=== PATIENT | female | born 1985 | race Caucasian/White ===

== ENCOUNTER 2025-01-03 17:31 | Emergency (ER) | payer OTHER ==
--- OUTSIDE RECORDS SUMMARY | 2025-01-03 17:34 | XMS REPORT | Clinical Summary ---
Author Name Unknown Organization [facility] Address [address] [place] [address] Care Team Providers Care Database Developer Name Role Phone Redd Hartman MD Primary Care Provider [phone] Kinjal Wyatt MD Unavailable Lupillo Isaacs MD Unavailable [phone] Anyi Nunn MD Unavailable Allergies Active Allergy Reactions Criticality Noted Date Comments Sulfamethoxazole-Trimethop rim Hives,Itching,Photosensitiv ity,Rash High 08/15/2016 Tramadol Hives,Itching 10/18/2022 Medications Synthroid 100 mcg tablet TAKE ONE (1) TABLET(S) BY MOUTH ONCE A DAY BEFORE BREAKFAST. 12/13/2021 Active Active Problems Problem Noted Date Diagnosed Date Dysplastic nevus of external ear <Left> 01/16/20 22 Dysplastic nevus of external ear <Right> 022 Assessment & Plan (01/15/2022 9:37 AM CDT): Ms. José is a 36 y/o female with a history of a dysplastic nevus of her left ear treated with excision back in June 2021. More recently she had a shave biopsy of the right ear that was also positive for an atypical nevus with features indicating further excision needed to be done. Her outside slides are being acquired for review/interpretation here. We will follow-up on those results. If they confirm what her current pathology reports outline, she would need a conservative excision on the right ear like she had done on the left. Because she has a raised skin lesion in a site that was biopsied, we suspect a very superficial biopsy might have been done and would like to do a punch biopsy of the lesion in clinic today. We will follow-up on those results and plan next steps accordingly. Dr. Hartman performed a 4mm punch biopsy. Her brother, who is an ER physician, will remove the sutures. She has no other skin lesions that are concerning at this time on skin exam. We do recommend she continue with her dermatologic surveillance every 6 months, as she is currently doing. Encounters Date Type Department Care Team Description 08/04/2024 Documentation Cancer [address], [address] [place] [address] Rangel Domingo 07/22/2024 3:00 PM SINKER WINDER Office Visit Undiagnosed Breast Clinic [address] [place] [address], [address] [place] [address] Anyi Nunn MD Family history of malignant neoplasm of breast 07/22/2024 12:38 PM SINKER WINDER - 07/22/2024 11:59 PM SINKER WINDER Hospital Encounter Breast Imaging [address] [place] [address], [address] [place] [address] Anyi Nunn MD Screening Discharge Disposition: Home 07/22/2024 12:15 PM SINKER WINDER - 07/22/2024 12:37 PM SINKER WINDER Hospital Encounter [facility] [address] [place] [id number] Carmen Oneal MD Exam of participant in clinical research Discharge Disposition: Home 07/22/2024 Travel 07/22/2024 Orders Only Cancer [address], [address] [place] [address] Rangel Domingo Exam of participant in clinical research (Primary Dx) 07/22/2024 Documentation Cancer [address], [address] [place] [address] Susana Domingoedgardo Bird 07/17/2024 Documentation Breast Imaging [address] [facility], 5th [place] [address] Tonie Ibanez, 05/18/2024 2:45 PM CDT [facility]erm[facility]ology [address] [facility] [address] [facility], 9th [place] [address] Corrina Morgan MD Screening for malignant neoplasm of skin 05/18/2024 Travel after 01/04/2024 Immunizations Immunization Administration Dates Next Due HPV 9-VALENT 06/20/2022,01/09/2022,11/05/2021 Influenza, injectable, quadr ivalent, preservative free 06/02/2023,05/18/2017 Moderna SARS-CoV-2 Vaccination 11/08/2020,2020 Tdap 11/25/2017 Surgical History Surgery Date Site/Laterality Comments EXCISION OF CERVIX USING LOOP ELECTRODE 09/18/2021 - 10/15/2021 ME EXCISION MALIGNANT LESION F/E/E/N/L 0.6-1.0 CM 05/29/2022 Right Procedure: EXCISION OF MALIGNANT LESION OF EAR - wide excision right ear; Surgeon: Redd Hartman MD; Location: [facility]; Service: SURG ONC - MELANOMA PARTIAL HYSTERECTOMY 11/16/2022 - 12/15/2022 COLONOSCOPY 09/18/2023 - 10/16/2023 Melia;l Follow up 10 years Medical History Medical History Date Comments Unspecified lump in unspecified breast 11/2021 Biopsy completed November 2021 Pneumonia 1997 Anemia 1998 Disorder of thyroid gland 2003 Eczema 2001 Malignant melanoma May 2021 Family History Medical History Relation Name Comments Melanoma Maternal Aunt Nahed Henry Her daughte r (my cousin) has had it twice. Melanoma Maternal Grandfather Irvin Van Sr Skin cancer Maternal Grandfather Irvin Van Sr Basa l cell Skin cancer Maternal Uncle Irvin Van Jr Basal cell Breast cancer Mother Robyn Moss Liver cancer Paternal Grandmother Claudia Gates Ordonez Relation Name Status Comments Maternal Aunt Nahed Henry Maternal Grandfather Irvin Van Sr Maternal Uncle Irvin Van Jr Mother Robyn Moss Paternal Grandmother Claudia Ordonez Social History Tobacco Use Types Packs/Day Years Used Date Smoking Tobacco: Never Smokeless Tobacco: Never Alcohol Use Standard Drinks/Week Comments Yes 0 (1 standard drink = 0.6 oz pur e alcohol) About 1 astrid / month Comments No Sex and Gender Information Value Date Recorded Sex Assigned at Female 12/08/2021 9:53 PM CDT Legal Sex Female 12:50 PM CDT Gender Identity Female 12/08/2021 9:53 PM CDT Sexual Orientation Straight 12/08/2021 9: 53 PM CDT Obstetrics History Para Term AB IAB SAB Ectopic Multiple Livin g Live Births 2 2 2 Date Outcome GA Total Labor Labor/2nd/3rd Weight Sex Type Anes PTL Tete A1 A5 Name Clin Term Term Comments Menarche: 8 Parity: 31 OBC: 16 years Hormonal Therapy: No Last Pap: (OS) 05/2022 Negative Abnormal Pap: (OS) Several Since mid HPV Positive and Dysplasia Treatment: LEEP and Hysterectomy Last Aly: 08/19/2023 Last Colon: (OS) 09/2023 Normal Follow up: 10 years Breast Bx: 3 MDA And 2 At [facility]; benign Last Filed Vital Signs Vital Sign Reading Time Taken Comments Blood Pressure 113/77 07/22/2024 2:30 PM SINKER WINDER Pulse 90 07/22/2024 2:30 PM SINKER WINDER Temperature - - Respiratory Rate 18 07/22/2024 2:30 PM SINKER WINDER Oxygen Saturation 99% 05/18/2024 2:51 PM CDT Inhaled Oxygen Concentration - - Weight 73.7 kg (162 lb 7.7 oz) 07/22/2024 2:30 P M SINKER WINDER Height 163 cm (5' 4.17") 07/22/2024 2:30 PM SINKER WINDER Body Mass Index 27.74 07/22/2024 2:30 PM SINKER WINDER Plan of Treatment Upcoming Encounters Date Type Department Care Team (Late st Contact Info) Description 01/05/2025 10:15 AM CDT Follow-Up [facility] Dermatology [address] [place] [address], 9th [place] [address] Corrina Morgan MD [address] [place] [id number] [email or web address] 01/27/2025 10:15 AM CDT Ancillary Procedure [facility] [address] [facility], 4th [place] [address] Anyi Nunn MD [address] [place] [address] [email or web address] 01/27/2025 2:40 PM CDT Office Visit Undiagnosed Breast Clinic [address] [facility], 5th [place] [address] Anyi Nunn MD [address] [place], [place] [id number] [email or web address] Health Maintenance Due Date Last Done Comments COVID-19 Vaccine (2023-2 5 season) 2024 11/08/2020, 10/13/2020 Influenza Vaccine (Season Ended) 2025 06/02/2023, 05/18/2017 Pneumococcal Vaccine Aged Out No long er eligible based on patient's age to complete this topic Procedures Procedure Name Priority Date/Time Associated Diagnosis Comments MAMMO DIGITAL SCREENING BILATERAL W OREN Routine 07/22/2024 2:26 PM SINKER WINDER Screening RESEARCH PROTOCOL [id number] Routine 07/22/2024 12:33 PM SINKER WINDER Exam of participant in clinical research after 01/04/2024 Results * Mammography Digital Screening Bilateral with Oren (07/22/2024 2:26 PM SINKER WINDER) Anatomical Region Laterality Modality Breast Bilateral Mammography Impressions 07/22/2024 2:43 PM SINKER WINDER Bilateral There is no mammographic evidence of malignancy. Overall BI-RAD Category: 2 - Benign Risk Appropriate Breast Cancer Screening is recommended for both breasts. Narrative 07/22/2024 2:43 PM SINKER WINDER CLINICAL INDICATION: Patient is a 39 y.o. female and is seen for screening. Mammography Digital Screening Bilateral with Oren Computer-aided detection was utilized by the radiologist in the interpretation of this examination. Tomosynthesis was performed in CC and MLO projections. COMPARISON: The present examination has been compared to prior imaging studies performed : 08/30/2016 OSI Mammo at External outside facility, 05/31/2021 OSI Mammo at External outside facility, 11/15/2021 OSI Mammo at External outside facility, 11/29/2021 OSI Mammo at External outside facility, 07/09/2023 MAMMO DIGITAL DIAGNOSTIC BILATERAL W OREN at [facility], 08/20/2023 Mammography Digital Diagnostic Bilateral with Oren at [facility], 08/20/2023 MRI Breast Bilateral with and without Contrast incl CAD at [facility], 09/04/2023 Post Procedure Mammogram Bilateral at [facility], 10/22/2023 Stereotactic Breast Biopsy - Left at [facility], 10/22/2023 Post Procedure Mammogram Left at [facility], 11/20/2023 US Breast Complete Left at [facility] FINDINGS: The breasts are heterogeneously dense, which may obscure small masses. Left 1) Clip: Top-Hat shaped postbiopsy clip in the retroareolar left breast denotes site of prior benign biopsy. Toby shaped postbiopsy clip in the central left breast, posterior depth, denotes site of biopsy-proven PASH. Dumbbell shaped postbiopsy clip in the inferior medial left breast denotes site of prior benign chronic lymphocytic lobulitis. There is no evidence of suspicious masses, calcifications, or other abnormal findings in the left breast. Right 2) Clip: Dumbbell shaped postbiopsy clip located in the right breast at the 4-5 o'clock position, 4 cm from the nipple denotes site of prior benign biopsy. There is a second dumbbell shaped postbiopsy clip located in the retroareolar right breast which denotes site of prior benign biopsy. There is no evidence of suspicious masses, calcifications, or other abnormal findings in the right breast. us Anyi Nunn MD IM MAMMOGRAPHY ORDERABLES Final Result * Research Protocol [id number] (07/22/2024 12:33 PM SINKER WINDER) Research Protocol Specimen Specimen Collected, Ready for Pickup. 07/22/2024 2:01 PM SINKER WINDER [facility] Blood Peripheral blood specimen / Unknown Venipuncture / Unknown 07/22/2024 12:33 PM SINKER WINDER 07/22/2024 12:36 PM SINKER WINDER us Carmen Oneal MD RESEARCH LAB Z CODES Final Resul t [facility] [address] [facility] [place] [address] after 01/04/2024 Insurance AET PPO POS AET PPO POS Advance Directives * Full Code (Latest Code Status on File) Date Activated Date Inactivated Comments 05/29/2022 9:05 AM 05/29/2022 1:40 PM Care Teams Database Developer Relationship Specialty Start Date End Date Redd Hartman MD [facility] [place] [address] [email or web address] PCP - General Melanoma Surgery 12/10/21 Kinjal Wyatt MD [address] [facility] [address] [place] [address] PCP - External Follow Up A Dermatology 12/28/21 Lupillo Isaacs MD [address] [facility] [address] [place] [address] [email or web address] Consulting Physician Dermatology 07/16/22 Anyi Nunn MD [address] [place] [id number] [email or web address] Consulting Physician Breast Medical Oncology 11/20/23
--- NOTE | 2025-01-03 19:01 | EDPHYS ---
Physician Documentation [facility] Name: Vijaya José Age: 39 yrs Sex: Female : 1985 Arrival Date: 01/03/2025 Time: 17:31 Bed 11 Private MD: ED Physician Karina Hanna HPI: 01/03 18:05 This 39 yrs old Female presents to ER via Ambulatory with complaints of Wound Check - cp post gallbladder removal 12/15/24. 18:[address] Lopez at [facility] 12/15/2024. cp 19:02 . 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 - Infectious Disease History:: Denies. - Social history:: Smoking status: Patient denies any tobacco usage or history of. Exam: 19:02 Constitutional: This is a well developed, well nourished patient who is awake, alert, gb1 and in no acute distress. Head/Face: Normocephalic, atraumatic. Eyes: Pupils equal round and reactive to light, extra-ocular motions intact. Lids and lashes normal. Conjunctiva and sclera are non-icteric and not injected. Cornea within normal limits. Periorbital areas with no swelling, redness, or edema. ENT: Nares patent. No nasal discharge, no septal abnormalities noted. Tympanic membranes are normal and external auditory canals are clear. Oropharynx with no redness, swelling, or masses, exudates, or evidence of obstruction, uvula midline. Mucous membranes moist. Chest/axilla: Normal chest wall appearance and motion. Nontender with no deformity. No lesions are appreciated. Abdomen/GI: Soft, non-tender, with normal bowel sounds. No distension or tympany. No guarding or rebound. No evidence of tenderness throughout. Patient has an area at the umbilicus that appears to be granulation tissue no fluctuance or induration no purulent drainage from the site. Back: No spinal tenderness. No costovertebral tenderness. Full range of motion. Skin: Warm, dry with normal turgor. Normal color with no rashes, no lesions, and no evidence of cellulitis. MS/ Extremity: Pulses equal, no cyanosis. Neurovascular intact. Full, normal range of motion. Vital Signs: 18:01 BP 116 / 78; Pulse 87; Resp 17; Temp 98.4; Pulse Ox 100% ; Weight 77.11 kg; Height 5 ap3 ft. 4 in. ; Pain 4/10; 18:01 Body Mass Index 29.18 (77.11 kg, 162.56 cm) ap3 18:01 Pain Scale: Adult ap3 MDM: 18:05 Medical Screening Exam initiated cp 19:02 ED course: 39-year-old female status post gallbladder removal within gb1 umbilicus trocar site that appears to have mild wound dehiscence versus early to mid stage granulation tissue. No focal fluctuance or induration I doubt abscess there is mild erythema but no tracking under the skin. No fluctuance palpated on exam. Patient is otherwise afebrile and well-appearing. Other trocar sites appear well-healed. I did recommend that she follow-up with her surgeon of record at [facility] and she is compliant with that plan of care. I am also given her topical Bactroban and discussed return precautions to which he is compliant to prior discharge home today.. Administered Medications: No medications were administered Disposition Summary: 01/03/25 19:00 Discharge Ordered Notes: Location: Home gb1 Condition: Stable gb1 Diagnosis - Periumbilical pain gb1 Followup: gb1 - With: Private Physician - When: - Reason: Re-evaluation by your physician Discharge Instructions: - Discharge Summary Sheet gb1 - Abdominal Pain, Adult gb1 Forms: - Medication Reconciliation Form gb1 - Antibiotic Education gb1 - Prescription Opioid Use gb1 - Patient Portal Instructions gb1 - Leadership Thank You Letter gb1 Prescriptions: - mupirocin 2 % Topical ointment - apply 1 application TOPICAL route 2 times per day; 3.5 gram tube; Refills: 0, gb1 Product Selection Permitted Signatures: Kodak Santos PA PA cp Prokisch, Amanda, RN RN ap3 Karina Hanna MD MD gb1
--- NOTE | 2025-01-03 19:01 | ER ---
Nurse's Notes [facility] Name: Vijaya José Age: 39 yrs Sex: Female : 1985 Arrival Date: 01/03/2025 Time: 17:31 Bed 11 Private MD: Diagnosis: Periumbilical pain Presentation: 01/03 18:01 Chief complaint: Patient states: she had her gallbladder removed approx 3 weeks ago at [facility], and is having green pockets in her belly button. patient reports she is on antibiotics at this time. patient currently rates her pain as a 4/10 on the pain scale. Coronavirus screen: At this time, the client does not indicate any symptoms associated with coronavirus-19. Ebola Screen: No symptoms or risks identified at this time. Initial Sepsis Screen: Does the patient meet any 2 criteria? No. Patient's initial sepsis screen is negative. Does the patient have a suspected source of infection? No. Patient's initial sepsis screen is negative. Risk Assessment: Do you want to hurt yourself or someone else? Patient reports no desire to harm self or others. Onset of symptoms is unknown. 18:01 Method Of Arrival: Ambulatory ap3 18:01 Acuity: ROBERTO 3 ap3 Triage Assessment: 18:03 General: Appears in no apparent distress. Behavior is calm, cooperative, appropriate ap3 for age. Pain: Complains of pain in umbilical area Pain currently is 4 out of 10 on a pain scale. Neuro: Level of Consciousness is awake, alert, obeys commands, Oriented to person, place, time, situation. Cardiovascular: Patient's skin is warm and dry. Respiratory: Airway is patent Respiratory effort is even, unlabored, Respiratory pattern is regular, symmetrical. Derm: Wound noted umbilical area. 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 - Infectious Disease History:: Denies. - Social history:: Smoking status: Patient denies any tobacco usage or history of. Screenin:04 [facility] ED Fall Risk Assessment (Adult) History of falling in the last 3 months, ap3 including since admission No falls in past 3 months (0 pts) Confusion or Disorientation No (0 pts) Intoxicated or Sedated No (0 pts) Impaired Gait No (0 pts) Mobility Assist Device Used No (0 pt) Altered Elimination No (0 pt) Score/Fall Risk Level 0 - 2 = Low Risk Oriented to surroundings, Maintained a safe environment, Educated pt \T\ family on fall prevention, incl call for assistance when getting out of bed, Assessed \T\ reinforced patient's understanding of fall precautions, Hourly rounding (assess needs \T\ fall precautionary measures) done, Used ambulatory aids as needed (educated on \T\ assisted with). Abuse screen: Denies threats or abuse. Nutritional screening: No deficits noted. Tuberculosis screening: No symptoms or risk factors identified. Assessment: 18:59 Reassessment: Patient appears in no apparent distress at this time. Patient and/or ss family updated on plan of care and expected duration. Pain level reassessed. Patient is alert, oriented x 3, equal unlabored respirations, skin warm/dry/pink. Vital Signs: 18:01 BP 116 / 78; Pulse 87; Resp 17; Temp 98.4; Pulse Ox 100% ; Weight 77.11 kg; Height 5 ap3 ft. 4 in. ; Pain 4/10; 18:01 Body Mass Index 29.18 (77.11 kg, 162.56 cm) ap3 18:01 Pain Scale: Adult ap3 ED Course: 17:33 Patient arrived in ED. im 17:37 Kodak Santos PA is PHCP. cp 17:37 Shabbir Ordonez DO is Attending Physician. cp 18:02 Triage completed. ap3 18:04 Arm band placed on right wrist. ap3 18:16 Karina Hanna MD is Attending Physician. cp 18:59 Patient has correct armband on for positive identification. Bed in low position. Call ss light in reach. Side rails up X 1. Provided Education on: plan of care. 18:59 No provider procedures requiring assistance completed. Patient did not have IV access ss during this emergency room visit. Administered Medications: No medications were administered Medication: 18:59 VIS not applicable for this client. ss Outcome: 19:00 Discharge ordered by . gb1 19:17 Discharged to home ambulatory, jb4 19:17 Condition: stable 19:17 Discharge instructions given to patient, Instructed on discharge instructions, follow up and referral plans. medication usage, Demonstrated understanding of instructions, follow-up care, medications, Prescriptions given X 1, 19:17 Patient left the ED. jb4 Signatures: Giselle Rodriguez, RN RN ss Kodak Santos PA PA cp Bryson, James, RN RN jb4 Kylee Mayen RN RN ap3 Angeli Pham Gina, MD MD gb1
[2025-01-03 19:36] VITALS: BP 116/78; TEMP 98.4; O2SAT 100
== END 2025-01-03 19:17 | disposition home or self-care (01) ==
LOC: ER 17:31
DX: R10.33 Periumbilical pain (principal); Z98.890 Other specified postprocedural states
CPT/HCPCS: 99283